=== PATIENT | female | born 1950 | race Caucasian/White ===

== ENCOUNTER → 2020-09-03 08:20 | Outpatient (CLI) | payer MEDICARE, SELFPAY ==
--- NOTE | ~2020-09-03 | MMUS_ITS ---
EXAMINATION: MM diagnostic miriam BI w enrico, US breast BI complete HISTORY: Left upper inner quadrant breast mass TECHNIQUE: ML, MLO and cc full field and spot 3-D tomosynthesis images of the breasts were performed and synthetic 2-D images were generated. CAD analysis was submitted and interpreted. High resolution breast ultrasound was performed. COMPARISON: 05/21/2017, 08/11/2014 bilateral digital screening mammogram examinations BREAST PARENCHYMAL COMPOSITION: There are scattered areas of fibroglandular density. FINDINGS: MAMMOGRAPHIC FINDINGS: There are scattered bilateral benign breast calcifications. No malignant calci fication is evident. No architectural distortion is evident. Bilateral breast masses were noted as follows: Right breast: 4 x 8.5 mm circumscribed lower outer quadrant right breast mass; benign mammographic fe atures Left breast: 1 cm circumscribed upper inner left breast mass; benign mammographic features 6 x 6.5 mm circumscribed outer mid left breast mass; benign mammographic features ULTRASOUND: Right breast: 4 x 6.5 mm benign-appearing lymph node at 8:00 5 cm from nipple Left breast: Parallel circumscribed complicated cystic lesion in the subcutaneous area of the left breast at 10:00 11 cm from the nipple, corresponding to the palpable mass and the mammographic circumscribed opacity . This measures approximately 12 x 15 x 8 mm. There is through transmission posterior enhancement. A tract is noted from this lesion to the skin. The findings are consistent with benign sebaceous cysts. IMPRESSION: 1. No mammographic evidence of malignancy 2. Routine annual mammographic screening is recommended. BI-RADS Category 2: Benign finding(s). Reviewed, dictated and finalized at location A. IMPRESSION: 1. No mammographic evidence of malignancy 2. Routine annual mammographic screening is recommended. BI-RADS Category 2: Benign finding(s).
== END ==
PROVIDERS: PCP Family Medicine; Visit Provider Physician Assistant Medical
DX: N63.22 Unspecified lump in the left breast, upper inner quadrant (principal)
CPT/HCPCS: 76641; 77062; 77066; G0279

== ENCOUNTER → 2021-11-23 02:01 | Outpatient (CLI) | payer MEDICARE, SELFPAY ==
[2021-11-24 16:23] LABS: SARS-CoV-2 RNA PCR Positive
== END ==
PROVIDERS: PCP Family Medicine; Visit Provider Physician Assistant Medical
DX: U07.1 COVID-19 (principal)
CPT/HCPCS: C9803; U0003; U0005

== ENCOUNTER 2022-01-27 00:28 | Day surgery (SDC) | payer MEDICARE, SELFPAY ==
[2022-01-20 14:05] VITALS: BMI 30.2
--- NOTE | 2022-01-24 15:26 | P.CONGI_ITS ---
Assessment and Plan Assessment and plan (1) Screening for malignant neoplasm of colon: Code(s): Z12.11 - Encounter for screening for malignant neoplasm of colon Status: Acute Assessment and Plan: Colonoscopy with possible biopsy or polypectomy or cautery or injection of substances. GI Consult Note Consult date/time: 01/24/22 15:26 HPI: Anamaria Miner is a 71 year old female with a family history of colorectal neoplasia. Both her brother and sister have had precancerous polyps Review of Systems Review of Systems: All systems reviewed & are unremarkable except as noted in HPI and below PMFSH Past Medical History Medical History BMI 28.0-28.9,adult BMI 29.0-29.9,adult COVID-19 Muscle spasm Family History Family History Mother Hypertension Family history of Alzheimer's disease COPD (chronic obstructive pulmonary disease) Tobacco abuse Sibling Family history of diabetes mellitus in first degree relative Father Family history of coronary artery disease Hypertension Acute myocardial infarction Sibling Lymphoma COVID-19 Pneumonia Social History Social History Years smoked: 20 Smoking status: Former smoker Second hand tobacco smoke exposure: Yes Alcohol intake: former Substance use: never Substance use type: does not use Living arrangements: alone 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 Gender identity (if verbalized by the patient): Female Spiritual care concerns: No Meds Home Medications and Allergies Home Medications Medication Instructions Recorded Confirmed Type escitalopram oxalate 10 mg tablet See Rx Instructions .ROUTE 11/27/21 01/20/22 Rx .COMPLEX #90 tablet rosuvastatin 20 mg tablet See Rx Instructions .ROUTE 11/27/21 01/20/22 Rx .COMPLEX #90 tablet celecoxib 200 mg capsule 200 mg PO DAILY #90 cap 12/12/21 01/20/22 Rx levothyroxine 88 mcg tablet 88 mcg PO DAILY #90 tablet 12/12/21 01/20/22 Rx cyclobenzaprine 10 mg PO TID PRN 01/20/22 01/20/22 History Allergies Allergy/AdvReac Type Severity Reaction Status Date / Time No Known Allergies Allergy Verified 01/27/22 09:54 Exam Const: General: alert Orientation/consciousness: patient oriented x3 Resp: Auscultation: clear to auscultation bilaterally Cardio: Rhythm: regular rhythm GI: GI Palp: Yes Soft to palpation and No Tenderness to palpation present (GI) Neuro: General: patient oriented x3
[2022-01-27 09:55] VITALS: BP 157/88; PULSE 103; RESP 16; TEMP 36.8; O2SAT 99; BMI 29.2
[2022-01-27] MEDS: LACTATED RINGERS 1,000 ML 150 ML IV CONT (10:03)
--- NOTE | 2022-01-27 10:09 | P.PNAN_ITS ---
Anes - Initial Pre Proc Eval Procedure: Operation Date: 01/27/22 10:45 Proposed Procedures p Screening Colonoscopy - Mark Morales MD Date/Time: 01/27/22 10:09 Surgeon: Mark Morales MD Pre Op Diagnosis: family hx of colon ca Patient Data Age: 71 Gender: F Height: 1.55 m Weight: 70.3 kg Last Vital Signs Temp 36.8 C 01/27/22 09:55 Pulse 103 H 01/27/22 09:55 Resp 16 01/27/22 09:55 BP 157/88 H 01/27/22 09:55 Pulse Ox 99 01/27/22 09:55 Allergies Allergy/AdvReac Type Severity Reaction Status Date / Time No Known Allergies Allergy Verified 01/27/22 09:54 Home Medications Medication Instructions Recorded Confirmed Type escitalopram oxalate 10 mg tablet See Rx Instructions .ROUTE 11/27/21 01/20/22 Rx .COMPLEX #90 tablet rosuvastatin 20 mg tablet See Rx Instructions .ROUTE 11/27/21 01/20/22 Rx .COMPLEX #90 tablet celecoxib 200 mg capsule 200 mg PO DAILY #90 cap 12/12/21 01/20/22 Rx levothyroxine 88 mcg tablet 88 mcg PO DAILY #90 tablet 12/12/21 01/20/22 Rx cyclobenzaprine 10 mg PO TID PRN 01/20/22 01/20/22 History Patient hx anesthesia problems: none Family hx anesthesia problems: none Results Review: All pre-operative results and documents have been reviewed as part of the pre-operative evaluation. [facility] Past Medical History Medical History BMI 28.0-28.9,adult BMI 29.0-29.9,adult COVID-19 Muscle spasm Family History Family History Mother Hypertension Family history of Alzheimer's disease COPD (chronic obstructive pulmonary disease) Tobacco abuse Sibling Family history of diabetes mellitus in first degree relative Father Family history of coronary artery disease Hypertension Acute myocardial infarction Sibling Lymphoma COVID-19 Pneumonia Social History Social History Years smoked: 20 Smoking status: Former smoker Second hand tobacco smoke exposure: Yes Alcohol intake: former Substance use: never Substance use type: does not use Living arrangements: alone 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 Informed Consent: The patient's anesthetic plan and its attendant risks and benefits were discussed with the patient/family/POA. Questions were solicited and answers provided to the satisfaction of the patient/family/POA.
[2022-01-27 11:16] VITALS: BP 94/56; PULSE 84; RESP 15; O2SAT 99
[2022-01-27 11:26] VITALS: BP 111/67; PULSE 81; RESP 16; O2SAT 99
[2022-01-27 11:36] VITALS: BP 113/70; PULSE 82; RESP 17; O2SAT 99
== END 2022-01-27 11:42 | disposition home or self-care (01) ==
PROVIDERS: PCP Family Medicine; Visit Provider Internal Medicine Gastroenterology
PROC: 0DJD8ZZ Inspection of Lower Intestinal Tract, Via Natural or Artificial Opening Endoscopic (ICD-10-PCS; CPT 45378; principal; 2022-01-27 10:45)
DX: Z12.11 Encounter for screening for malignant neoplasm of colon (principal); K63.5 Polyp of colon; E03.9 Hypothyroidism, unspecified; Z86.16 Personal history of COVID-19; Z87.891 Personal history of nicotine dependence
CPT/HCPCS: 45380; 88305; J2001; J2704; J7120

== ENCOUNTER → 2022-02-24 13:01 | Outpatient (CLI) | payer MEDICARE, SELFPAY ==
--- NOTE | ~2022-02-24 | DEXA_ITS ---
Bone Density Report Name: KENDAL CHIU Age: 71 Sex: Female Ethnicity: White Date of : 1950 Indication: postmenopausal; screening for osteoporosis; height loss; Referring Provider: Nory Chowdhury Study: Bone densitometry was performed. Exam Date: February 24, 2022 Accession number: [id number] Bone Density: Region BMD T-score Z-score Classification AP Spine (L1, L2) 1.107 1.2 3.3 Normal Femoral Neck (Left) 0.753 -0.9 1.1 Normal Total Hip (Left) 0.981 0.3 2.0 Normal Femoral Neck (Right) 0.783 -0.6 1.4 Normal Total Hip (Right) 1.021 0.6 2.3 Normal Total Hip Mean 1.001 0.5 2.2 Normal World Health Organization criteria for BMD impression classify patients as: Normal (T-score at or above -1.0), Osteopenia (T-score between -1.0 and -2.5), or Osteoporosis (T-score at or below -2.5). 10-year Fracture Risk: FRAX not reported because: All T-scores for Spine Total, Hip Total, Femoral Neck at or above -1.0 Previous Exams: Region Exam Age BMD T-score BMD Change BMD Change Date g/cm2 vs Baseline vs Previous AP Spine(L1, L2) 02/24/2022 71 1.107 1.2 0.092* 0.092* 06/29/2006 56 1.014 0.3 Total Hip(Left) 02/24/2022 71 0.981 0.3 -0.130* -0.130* 06/29/2006 56 1.111 1.4 Total Hip(Right) 02/24/2022 71 1.021 0.6 -0.088* -0.088* 06/29/2006 56 1.109 1.4 *Denotes significance at 95% confidence level, LSC for AP Spine = 0.022 g/cm2, LSC for Total Hip = 0.027 g/cm2 Clinical Information Provided by Patient: Has used the following medications: Vitamin D, LEVOTHYROXINE Patient maximum height was 62.0 Menopause Age: 51 No regular weight bearing exercise Drinks caffeinated beverages Onset of menses at age 13 Number of children 2 Impression: The patient has normal bone mass. The BMD for the Total Hip(Left) decreased, changing by -0.130 since the last DXA exam. The BMD for the Total Hip(Right) decreased, changing by -0.088 since the last DXA exam. Discussion: BONE DENSITY IS ABOVE THE MINIMUM DESIRABLE LEVEL AT ALL SKELETAL SITES TESTED. This patient?s bone mineral density is above the minimum desirable level (T-score -1.0 or better) at all sites measured. The patient should follow a healthful lifestyle (good nutrition with adequate calcium and vitamin D, and appropriate weight-bearing exercise). Follow-Up: Consider repeating this study in 3 to 4 years to reassess this patient's status
--- NOTE | ~2022-02-24 | MM_ITS ---
EXAMINATION: MM screening miriam BI w enrico HISTORY: Screening mammogram TECHNIQUE: Craniocaudal and mediolateral oblique 3-D tomosynthesis images were obtained and synthetic 2-D images were generated. CAD analysis was submitted and interpreted. COMPARISON: 09/03/2020 bilateral diagnostic mammography and bilateral complete breast ultrasound 05/21/2017 bilateral screening mammogram BREAST PARENCHYMAL COMPOSITION: There are scattered areas of fibroglandular density. FINDINGS: There is a circumscribed benign-appearing mammary lymph node on each side laterally, presen t on the prior examinations.. Occasional bilateral benign calcifications. There is no evidence of suspicious mass, calcification, or architectural distortion to suggest malign sammi in either breast. There has been no suspicious interval change. IMPRESSION: 1. No mammographic evidence of malignancy. 2. Recommend routine screening mammography in one year. BI-RADS Category 2: Benign finding(s). Reviewed, dictated and finalized at location A.
== END ==
PROVIDERS: PCP Family Medicine; Visit Provider Nurse Practitioner Family
DX: Z12.31 Encounter for screening mammogram for malignant neoplasm of breast (principal); Z78.0 Asymptomatic menopausal state
CPT/HCPCS: 77063; 77067; 77080

== ENCOUNTER 2025-01-02 18:07 | Emergency (ER) | payer MEDICARE, SELFPAY ==
--- NOTE | ~2025-01-02 | XR_ITS ---
EXAMINATION: XR chest 1V portable Exam Date/Time: 01/02/2025 19:04 PLUSH FINISHER HISTORY: near syncope Comparison: 04/07/2007. RESULT: Lines, tubes, and devices: None. Lungs and pleura: Low volumes with crowding. Lordotic positioning. Otherwise clear. Cardiomediastinal silhouette: Stable. Other: No acute osseous or upper abdominal finding. IMPRESSION: No acute cardiopulmonary process. Reviewed, dictated and finalized at location K. H FINISHER
[2025-01-02 18:04] VITALS: BP 104/56; PULSE 72; RESP 16; TEMP 36.7; O2SAT 98
--- NOTE | 2025-01-02 18:11 | ECG_ITS ---
Test Date: 2025-01-02 18:17:17 Measurements Intervals Chana Rate: 70 P: 5 WV: 131 QRS: 1 QRSD: 84 T: 97 QT: 369 QTc: 399 Interpretive Statements SINUS RHYTHM NONSPECIFIC ST-T WAVE ABNORMALITY- ANTEROLAT/HIGH LAT LEADS BASELINE ARTIFACT- I, II, III, AVR, AVL, AVF BORDERLINE ECG No previous ECG available for comparison Electronically Signed On 01-02-2025 19:08:36 [employer] by Siva Hurley D.O.
--- NOTE | 2025-01-02 18:32 | ED_ITS ---
HPI - General Adult General Chief complaint: Weakness Stated complaint: near syncope, hypotensive History of Present Illness HPI narrative: 74-year-old female present to the emergency department for evaluation after eating some lightheaded and dizziness. Patient states that she did work today and then she donated blood after work and went home to have a nap and she states after she woke up with a nap she was having some lightheaded and dizziness. Related Data Allergies Allergy/AdvReac Type Severity Reaction Status Date / Time No Known Allergies Allergy Verified 01/02/25 18:11 Review of Systems 2 Review of Systems: All systems reviewed & are unremarkable except as noted in HPI and below PMFSH Past Medical History Medical History Colonoscopy planned COVID-19 Muscle spasm Family History Family History Mother Hypertension Family history of Alzheimer's disease COPD (chronic obstructive pulmonary disease) Tobacco abuse Sibling Family history of diabetes mellitus in first degree relative Father Family history of coronary artery disease Hypertension Acute myocardial infarction Sibling Lymphoma COVID-19 Pneumonia Social History Social History Years smoked: 20 Smoking status: Former smoker Second hand tobacco smoke exposure: Yes Alcohol intake: current Substance use: never Substance use type: does not use Lack of Transportation: No Lack of Food: Never True Current Housing: I Have Housing Concerned About Future Housing: No Difficulty Paying Gas/Electric Bills: No Difficulty Paying for Meds: No Currently Unemployed: No Education: High School Diploma/GED Difficulty w/ Childcare or Family Care: No Living arrangements: alone Occupation/Education: occupation 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 HEAD: normocephalic, atraumatic. EYES: PERRLA/EOMI, conjunctivae clear. NOSE: Normal no drainage EARS:TMS clear with good light reflex. THROAT: Pharynx clear, no exudate. NECK: Supple. No adenopathy, no masses. RESPIRATORY: Airway patent, respirations nonlabored. Clear to auscultation bilaterally, no rales, rhonchi, wheezing. CARDIOVASCULAR: Regular rate and rhythm without murmurs rubs or gallops. ABDOMINAL: Soft, nontender, nondistended, normal bowel sounds MUSCULOSKELETAL: Moves all extremities. Strength/ROM intact, No edema, No calf tenderness. NEURO: Alert. Cranial nerves II through XII intact. Good gait. Good coordination SKIN: Warm, dry. Normal Color Course Vital Signs Vital signs: Vital Signs Temperature 98.0 F 01/02/25 18:04 Pulse Rate 72 01/02/25 18:04 Respiratory Rate 16 01/02/25 18:04 Blood Pressure 104/56 L 01/02/25 18:04 Pulse Oximetry 98 01/02/25 18:04 Oxygen Delivery Room Air 01/02/25 18:04 Temperature 98.0 F 01/02/25 18:04 Pulse Rate 80 01/02/25 19:45 Respiratory Rate 16 01/02/25 18:56 Blood Pressure 148/65 H 01/02/25 19:45 Pulse Oximetry 100 01/02/25 18:56 Oxygen Delivery Room Air 01/02/25 18:04 Medical Decision Making [facility] Narrative Medical decision making narrative: 74-year-old female presented emergency department for evaluation for near syncopal episode after donating blood. Patient was treated with a L IV fluid and patient had normal orthostatic vitals the patient is able to ambulate to the emergency department at her baseline. On re-evaluation patient denies any lightheaded dizziness or any complaint. Patient is afebrile with no leukocytosis and a stable hemoglobin of 12.4. Patient has no acute abnormalities on her CMP. Patient was negative for influenza RSV and for COVID. Differential Diagnosis Differential Diagnosis: COVID, RSV, influenza, dehydration Vital Signs Vital Signs: Vital Signs Temperature 98.0 F 01/02/25 18:04 Pulse Rate 72 01/02/25 18:04 Respiratory Rate 16 01/02/25 18:04 Blood Pressure 104/56 L 01/02/25 18:04 Pulse Oximetry 98 01/02/25 18:04 Oxygen Delivery Room Air 01/02/25 18:04 Temperature 98.0 F 01/02/25 18:04 Pulse Rate 80 01/02/25 19:45 Respiratory Rate 16 01/02/25 18:56 Blood Pressure 148/65 H 01/02/25 19:45 Pulse Oximetry 100 01/02/25 18:56 Oxygen Delivery Room Air 01/02/25 18:04 Lab Data Lab results reviewed: Yes I reviewed the patient's lab results. 01/02/25 18:29 01/02/25 18:29 Labs: Lab Results 01/02/25 Range/Units 18:29 WBC 6.6 (4.5-10.0) K/mm3 RBC 3.96 L (4.2-5.4) M/mm3 Hgb 12.4 (12.0-15.0) g/dL Hct 37.3 (37.0-47.0) % MCV 94.2 (80-100) fl MCH 31.3 (26-34) pg MCHC 33.2 (32-36) g/dl RDW 11.9 (11.5-14.5) % Plt Count 216 (150-375) k/mm3 MPV 10.0 (7.4-10.4) fl Immature Gran % (Auto) 0.3 (0-0.5) % Neut % (Auto) 57.6 (45.5-73.1) % Lymph % (Auto) 29.3 (18.3-44.2) % Ransom % (Auto) 11.1 H (2.6-8.5) % Eos % (Auto) 1.2 (0-4.4) % Baso % (Auto) 0.5 (0.2-1.2) % Lymph # (Auto) 1.93 (0.9-3.2) K/mm3 Ransom # (Auto) 0.7 H (0.1-0.6) K/mm3 Eos # (Auto) 0.1 (0-0.3) K/mm3 Baso # (Auto) 0.0 (0.0-0.1) K/mm3 Abs Immat Gran (auto) 0.02 (0.00-0.031) K/mm3 Absolute Neuts (auto) 3.8 (1.3-6.7) K/mm3 Absolute Nucleated RBC 0.000 (0.0-0.012) K/mm3 Nucleated RBC % 0.0 (0.0-0.2) % Sodium 139 (137-145) mmol/L Potassium 3.6 (3.4-5.0) mmol/L Chloride 104 (98-107) mmol/L Carbon Dioxide 27 (22-30) mmol/L Anion Gap 8 (4-12) mmol/L BUN 20 H (7-17) mg/dL Creatinine 0.71 (0.7-1.0) mg/dL Estim Creat Clear Calc 57 ml/min Estimated GFR > 60 (59 - ) Glucose 108 (65-110) mg/dL Calcium 8.9 (8.4-10.2) mg/dL Total Bilirubin 0.6 (0.2-1.3) mg/dL AST 23 (14-36) U/L ALT 23 (6-35) U/L Alkaline Phosphatase 55 (38-126) U/L Total Protein 6.0 L (6.3-8.2) g/dL Albumin 3.9 (3.5-5.1) g/dL Influenza A (RT-PCR) Negative (Negative) Influenza B (RT-PCR) Negative (Negative) RSV (RT-PCR) Negative (Negative) SARS-CoV-2 RNA (RT-PCR) Negative (Negative) Imaging Data Radiologist's impression: Impressions Chest X-Ray 01/02/25 19:14 IMPRESSION: No acute cardiopulmonary process. Discharge Plan Discharge Clinical Impression: Orthostatic hypotension Patient Disposition: Home, Self-Care Condition: Stable Instructions: Antibiotic Form Additional Instructions: Drink plenty of fluids. Have close follow-up with your primary care physician. If you have any worsening symptoms then please call or return to the emergency department. Patient Language: Yi Prescriptions: No Action celecoxib [Celebrex] 200 mg capsule 200 mg PO DAILY Qty: 90 3RF cyclobenzaprine 10 mg tablet 10 mg PO TID PRN (Reason: Muscle Spasm) Qty: 30 3RF escitalopram oxalate 10 mg tablet See Rx Instructions .ROUTE .COMPLEX Qty: 90 3RF Dose Instruction: Take 1 tablet by mouth once daily Rx Instructions: Take 1 tablet by mouth once daily rosuvastatin 20 mg tablet See Rx Instructions .ROUTE .COMPLEX Qty: 90 3RF Dose Instruction: Take 1 tablet by mouth once daily Rx Instructions: Take 1 tablet by mouth once daily levothyroxine 88 mcg tablet 88 mcg PO DAILY Qty: 90 0RF Follow-up/Referrals: Jamison Mitchell MD [Primary Care Provider] -
[2025-01-02 18:37] LABS: Basophils Percent Auto 0.5 % (0.2-1.2); Eosinophils Absolute Auto 0.1 K/mm3 (0-0.3); Eosinophils Percent Auto 1.2 % (0-4.4); Hematocrit 37.3 % (37.0-47.0); Hemoglobin 12.4 g/dL (12.0-15.0); Immature Granulocyte Absolute 0.02 K/mm3 (0.00-0.031); Immature Granulocyte Percent A 0.3 % (0-0.5); Lymphocytes Absolute Auto 1.93 K/mm3 (0.9-3.2); Lymphocytes Percent Auto 29.3 % (18.3-44.2); Mean Corpuscular HGB Conc 33.2 g/dl (32-36); Mean Corpuscular Hemoglobin 31.3 pg (26-34); Mean Corpuscular Volume 94.2 fl (80-100); Monocytes Absolute Auto 0.7 K/mm3 (0.1-0.6); Monocytes Percent Auto 11.1 % (2.6-8.5); Neutrophils Absolute Auto 3.8 K/mm3 (1.3-6.7); Neutrophils Percent Auto 57.6 % (45.5-73.1); Platelet Count Result 216 k/mm3 (150-375); Red Blood Count 3.96 M/mm3 (4.2-5.4); Red Cell Distribution Width 11.9 % (11.5-14.5); White Blood Count 6.6 K/mm3 (4.5-10.0)
[2025-01-02 18:53] LABS: Alanine Aminotransferase 23 U/L (6-35); Albumin Level 3.9 g/dL (3.5-5.1); Alkaline Phosphatase 55 U/L (38-126); Anion Gap 8 mmol/L (4-12); Aspartate Amino Transferase 23 U/L (14-36); Bilirubin,Total 0.6 mg/dL (0.2-1.3); Blood Urea Nitrogen 20 mg/dL (7-17); Calcium 8.9 mg/dL (8.4-10.2); Carbon Dioxide 27 mmol/L (22-30); Chloride 104 mmol/L (98-107); Estimated CRCL calculation 57 ml/min; Estimated Glomerular Filt Rate > 60; Glucose 108 mg/dL (65-110); Potassium 3.6 mmol/L (3.4-5.0); Sodium 139 mmol/L (137-145)
--- OUTSIDE RECORDS SUMMARY | 2025-01-02 18:53 | XMS_ITS | Referral Summary ---
Author Organization [address] Address [address] [place] [id number] Care Team Providers Care Buyer Intern Name Role Phone Jamison Mitchell MD Primary Care Provider [phone] Encounters Date Type Department Care Team Description 10/27/2024 3:10 PM DIRECTOR OF ELEMENTARY EDUCATION Ancillary Procedure [facility] Imaging at [address] [id number] Subacute cough 10/27/2024 2:45 PM DIRECTOR OF ELEMENTARY EDUCATION Office Visit [facility] at [address] [id number] Tod Greenwood NP Subacute cough (Primary Dx) from Last 3 Months Allergies No known active allergies Medications benzonatate (TESSALON) 200 mg capsuleIndicati ons:Subacute cough Take 1 capsule (200 mg total) by mouth 3 (three) times a day as needed for cough keep tessalon out of reach of children, especially children under the age of 10, due to possible serious risk such as if ingested by children under the age of 10. 30 capsule 4 Active methylPREDNISol one (Medrol, Obdulio,) 4 mg DosepackIndicat ions:Subacute cough follow package directions 1 packet 4 Active Active Problems No known active problems Social History Tobacco Use Types Packs/Day Years Used Date Smoking Tobacco: Never Assessed Comments Unknown Sex and Gender Information Value Date Recorded Sex Assigned at Not on file Legal Sex Female 12:37 AM DIRECTOR OF ELEMENTARY EDUCATION Gender Identity Not on file Sexual Orientation Not on file Last Filed Vital Signs Vital Sign Reading Time Taken Comments Blood Pressure 130/81 10/27/2024 2:44 PM DIRECTOR OF ELEMENTARY EDUCATION Pulse 72 10/27/2024 3:08 PM DIRECTOR OF ELEMENTARY EDUCATION Temperature 36.9 C (98.4 F) 10/27/2024 2:44 PM DIRECTOR OF ELEMENTARY EDUCATION Respiratory Rate 20 10/27/2024 2:44 PM DIRECTOR OF ELEMENTARY EDUCATION Oxygen Saturation 99% 10/27/2024 3:08 PM DIRECTOR OF ELEMENTARY EDUCATION Inhaled Oxygen Concentration - - Weight 75.3 kg (166 lb) 10/27/2024 2:44 PM DIRECTOR OF ELEMENTARY EDUCATION Height - - Body Mass Index - - Plan of Treatment Not on file Procedures Procedure Name Priority Date/Time Associated Diagnosis Comments XR CHEST PA LATERAL 2 VIEWS Schedule JENNIFER, Read JENNIFER (Appt Today, Awaiting Results) 10/27/2024 3:23 PM DIRECTOR OF ELEMENTARY EDUCATION Subacute cough from Last 3 Months Results * XR Chest PA Lateral 2 Views (10/27/2024 3:23 PM DIRECTOR OF ELEMENTARY EDUCATION) Anatomical Region Laterality Modality Body, Chest N/A Digital Radiogra phy 10/27/2024 3:47 PM DIRECTOR OF ELEMENTARY EDUCATION Narrative 10/27/2024 3:47 PM DIRECTOR OF ELEMENTARY EDUCATION EXAM DESCRIPTION: XR CHEST PA LATERAL 2 VIEWS REASON FOR STUDY: cough, 3 months. no hx of asthma or smoking Pt complains of cough and congestion x 3 months. No asthma,copd,cancer,heart disease. No chest surgery. Former smoker, quit 40 years ago, smoked for 20 years 1/2ppd TECHNIQUE: 2 radiographic view(s) of the chest. COMPARISON: None FINDINGS: The cardiomediastinal silhouette appears normal. There is no airspace consolidation or pleural effusion. IMPRESSION: No acute findings THIS IS AN ELECTRONICALLY VERIFIED FINAL REPORT 10/27/2024 3:47 PM - Electronically signed by Kevin Lira M.D., JR T: Report ID: [id number] Reading Location: [id number] Procedure Note Kevin Lira MD - 10/27/2024 EXAM DESCRIPTION: XR CHEST PA LATERAL 2 VIEWS REASON FOR STUDY: cough, 3 months. no hx of asthma or smoking Pt complains of cough and congestion x 3 months. Noasthma,copd,cancer,heart disease. No chest surgery. Former smoker, quit 40 years ago, smoked for 20 years 1/2ppd TECHNIQUE: 2 radiographic view(s) of the chest. COMPARISON: None FINDINGS: The cardiomediastinal silhouette appears normal. There is no airspace consolidation or pleural effusion. IMPRESSION: No acute findings THIS IS AN ELECTRONICALLY VERIFIED FINAL REPORT 10/27/2024 3:47 PM - Electronically signed by Kevin Lira M.D., JR T: Report ID: [id number] Reading Location: [place] [address] Tod Greenwood NP IMG XR PROCEDURES Final Result from Last 3 Months Insurance MEDICARE [employer] [facility] MED[facility] SUPPLEMENT INSURANCE Care Teams Buyer Intern Relationship Specialty Start Date End Date Jamison Mitchell MD [address] [place] [address] PCP - General Family Medicine 10/27/24
--- OUTSIDE RECORDS SUMMARY | 2025-01-02 18:53 | XMS_ITS | Clinical Summary ---
Author Organization [address] Address [address] [place] [id number] Care Team Providers Care Environmental Health Safety Engineer Name Role Phone Jamison Mitchell MD Primary Care Provider [phone] Allergies No known active allergies Medications benzonatate [...] Active Active Problems No known active problems Encounters Date Type Department Care Team Description 10/27/2024 3:10 PM ORTHOPEDIC MECHANIC Ancillary Procedure [facility] Imaging at [address] [phone] Subacute cough 10/27/2024 2:45 PM ORTHOPEDIC MECHANIC Office Visit [facility] Care at [address] [phone] Tod Greenwood NP Subacute cough (Primary Dx) from Last 3 Months Social History Tobacco Use Types Packs/Day Years Used Date Smoking Tobacco: Never Assessed Comments Unknown Sex and Gender Information Value Date Recorded Sex Assigned at Not on file Legal Sex Female 12:37 AM ORTHOPEDIC MECHANIC Gender Identity Not on file Sexual Orientation Not on file Obstetrics History Last Filed Vital Signs Vital Sign Reading Time Taken Comments Blood Pressure 130/81 10/27/2024 2:44 PM ORTHOPEDIC MECHANIC Pulse 72 10/27/2024 3:08 PM ORTHOPEDIC MECHANIC Temperature 36.9 C (98.4 F) 10/27/2024 2:44 PM ORTHOPEDIC MECHANIC Respiratory Rate 20 10/27/2024 2:44 PM ORTHOPEDIC MECHANIC Oxygen Saturation 99% 10/27/2024 3:08 PM ORTHOPEDIC MECHANIC Inhaled Oxygen Concentration - - Weight 75.3 kg (166 lb) 10/27/2024 2:44 PM ORTHOPEDIC MECHANIC Height - - Body Mass Index - - Plan of Treatment Health Maintenance Due Date Last Done Comments Colon Cancer Screening-Colonoscopy 1950 Depression Screening 1949 Fall Risk Assessment 1950 Hepatitis C Screening 1950 Osteoporosis Screening-Bone Density Scan 1949 DTaP/Tdap/Td Vaccine (1 - Tdap) 1960 Hepatitis B Screening 1967 Pneumococcal vaccine 65+ (1 of 1 - PCV) 1999 Zoster Vaccine (1 of 2) 1999 Well Visit 65+ 2014 Influenza Vaccine (#1) 2024 Procedures Procedure Name Priority Date/Time Associated Diagnosis Comments XR CHEST PA LATERAL 2 VIEWS Schedule JENNIFER, Read JENNIFER (Appt Today, Awaiting Results) 10/27/2024 3:23 PM ORTHOPEDIC MECHANIC Subacute cough from Last 3 Months Results * XR Chest PA Lateral 2 Views (10/27/2024 3:23 PM ORTHOPEDIC MECHANIC) Anatomical Region Laterality Modality Body, Chest N/A Digital Radiogra phy 10/27/2024 3:47 PM ORTHOPEDIC MECHANIC Narrative 10/27/2024 3:47 PM ORTHOPEDIC MECHANIC EXAM DESCRIPTION: XR CHEST PA LATERAL 2 [...] Kevin Lira M.D., JR T: Report ID: [id number] Reading Location: [id number] Procedure Note Kevin Lira MD - 10/27/2024 [...] Kevin Lira M.D., JR T: Report ID: [id number] Reading Location: [id number] Tod Greenwood NP IMG XR PROCEDURES Final Result from Last 3 Months Insurance MEDICARE [facility] MEDICARE SUPPLEMENT INSURANCE SANIYA HERRERA [id number] Care Teams Environmental Health Safety Engineer Relationship Specialty Start Date End Date Jamison Mitchell MD [address] [place] [address] PCP - General Family Medicine 10/27/24
[2025-01-02] MEDS: SODIUM CHLORIDE 0.9% IV 1,000 ML 999 ML IV CONT (18:55)
[2025-01-02 18:56] VITALS: BP 113/73; PULSE 69; RESP 16; O2SAT 100
[2025-01-02 19:13] LABS: Influenza A QL RT-PCR Negative (Negative); Influenza B QL RT-PCR Negative (Negative); RSV RNA, RT-PCR Negative (Negative); SARS-CoV-2 RNA PCR Negative (Negative)
[2025-01-02 19:45] VITALS: BP 117/64; BP 130/83; BP 148/65; PULSE 73; PULSE 78; PULSE 80
== END 2025-01-02 20:16 | disposition home or self-care (01) ==
PROVIDERS: Emergency Provider Emergency Medicine; PCP Family Medicine
DX: I95.9 Hypotension, unspecified (principal); Z20.822 Contact with and (suspected) exposure to COVID-19
CPT/HCPCS: 36415; 71045; 80053; 85025; 87637; 93005; 96360; 99283; J7030